=== PATIENT | female | born 1995 | race Caucasian/White ===

== ENCOUNTER 2023-03-26 10:24 | Emergency (ER) | payer OTHER, MEDICARE, SELFPAY ==
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
--- NOTE | ~2023-03-26 | XR_ITS ---
EXAMINATION: XR femur RT min 2V INDICATION: Right femur pain TECHNIQUE: Two views of the right femur are obtained on four radiographs. COMPARISON: None available FINDINGS: No fracture, dislocation, or subluxation. The bones, soft tissues, and joint spaces are nor mal. IMPRESSION: 1. No acute osseous abnormality. Reviewed, dictated and finalized at location A.
--- NOTE | ~2023-03-26 | XR_ITS ---
EXAMINATION: XR hip RT min 3V w AP pelvis INDICATION: Right hip pain TECHNIQUE: AP view the pelvis and three views of the right hip are obtained. COMPARISON: None available FINDINGS: Bone alignment is normal. There is no fracture. The soft tissues are unremarkable. Phleboli ths are noted in the pelvis. IMPRESSION: 1. No acute osseous abnormality. Reviewed, dictated and finalized at location A.
[2023-03-26 10:55] VITALS: BP 121/58; PULSE 94; RESP 16; TEMP 37.1; O2SAT 99
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
[2023-03-26] MEDS: HYDROcodone/acetaminophen (*CRX) 5-325 MG TABLET 1 TAB PO (12:29)
[2023-03-26 13:01] LABS: Basophils Percent Auto 0.3 % (0.2-1.2); Eosinophils Absolute Auto 0.1 K/mm3 (0-0.3); Eosinophils Percent Auto 0.9 % (0-4.4); Hematocrit 44.3 % (37.0-47.0); Hemoglobin 14.7 g/dL (12.0-15.0); Immature Granulocyte Absolute 0.04 K/mm3 (0.00-0.031); Immature Granulocyte Percent A 0.3 % (0-0.5); Lymphocytes Absolute Auto 2.44 K/mm3 (0.9-3.2); Lymphocytes Percent Auto 21.2 % (18.3-44.2); Mean Corpuscular HGB Conc 33.2 g/dl (32-36); Mean Corpuscular Hemoglobin 29.9 pg (26-34); Mean Corpuscular Volume 90.2 fl (80-100); Mean Platelet Volume 10.6 fl (7.4-10.4); Monocytes Absolute Auto 0.6 K/mm3 (0.1-0.6); Monocytes Percent Auto 5.2 % (2.6-8.5); Neutrophils Absolute Auto 8.3 K/mm3 (1.3-6.7); Neutrophils Percent Auto 72.1 % (45.5-73.1); Platelet Count Result 308 k/mm3 (150-375); Red Blood Count 4.91 M/mm3 (4.2-5.4); Red Cell Distribution Width 12.4 % (11.5-14.5); White Blood Count 11.5 K/mm3 (4.5-10.0)
[2023-03-26] MEDS: TETANUS,DIPHTHERIA,AC PERTUSSIS ADULT (0.5 ML) BOOSTRIX IM (13:08)
[2023-03-26 13:18] LABS: Alanine Aminotransferase 19 U/L (6-35); Albumin Level 4.5 g/dL (3.5-5.1); Alkaline Phosphatase 73 U/L (38-126); Anion Gap 7 mmol/L (8-16); Aspartate Amino Transferase 24 U/L (14-36); Bilirubin,Total 0.7 mg/dL (0.2-1.3); Blood Urea Nitrogen 16 mg/dL (7-17); Calcium 9.2 mg/dL (8.4-10.2); Carbon Dioxide 24 mmol/L (22-30); Chloride 104 mmol/L (98-107); Creatine Kinase 65 U/L (30-135); Estimated CRCL calculation 180 ml/min; Estimated Glomerular Filt Rate > 60; Glucose 190 mg/dL (65-110); Sodium 135 mmol/L (137-145)
--- NOTE | 2023-03-26 13:38 | PC.NURSE ---
pt taken to CT at this time
[2023-03-26 13:49] LABS: Appearance Urine Cloudy (Clear); Bilirubin Urine 1+ (Negative); Blood Urine Trace-intact (Negative); Color Urine Yellow (Yellow); Glucose Urine UA Trace mg/dL (Negative); Ketones Urine 1+ mg/dL (Negative); Leukocyte Esterase Ur Negative LEU/UL (Negative); Nitrate Urine Negative (Negative); Protein Urine 2+ mg/dL (Negative); Urobilinogen Urine 0.2 mg/dL (<2.0); pH Urine 6.5 (5.0-9.0)
--- NOTE | 2023-03-26 13:58 | PC.NURSE ---
pt returned to room 21 at this time
[2023-03-26 14:08] LABS: Bacteria Urine 4+ /hpf; Mucus Urine Present /lpf; Need Manual Microscopic Reviewed; Non Pathogenic Casts 0-2; Squamous Epithelial Cell Urine Many /hpf (Few); WBC Urine 51-100 /hpf
[2023-03-26 14:14] LABS: Add Urine Microscopic? YES
[2023-03-26 15:03] VITALS: BP 128/66; PULSE 88; RESP 20; O2SAT 99
== END 2023-03-26 15:05 | disposition home or self-care (01) ==
PROVIDERS: Emergency Provider Student in an Organized Health Care Education/Training Program
DX: S70.01XA Contusion of right hip, initial encounter (principal); N39.0 Urinary tract infection, site not specified; Z23 Encounter for immunization; N83.202 Unspecified ovarian cyst, left side; V47.5XXA Car driver injured in collision with fixed or stationary object in traffic accident, initial encounter
CPT/HCPCS: 36415; 73502; 73552; 74177; 80053; 81001; 81025; 82550; 85025; 87086; 87088; 90471; 90715; 99284; A9270; Q9967

== ENCOUNTER 2023-06-29 11:53 | Emergency (ER) | payer MEDICAID, SELFPAY ==
[2023-06-29 12:05] VITALS: BP 110/58; PULSE 85; RESP 16; TEMP 37.2; O2SAT 99
--- NOTE | 2023-06-29 12:42 | ED.URI ---
HPI - URI/Sore Throat General Chief Complaint: Upper Respiratory Infection Stated Complaint: cough, short of breath Time Seen by Provider: 06/29/23 12:42 Source: patient Mode of arrival: ambulatory Limitations: no limitations History of Present Illness HPI Narrative: 28-year-old female presents with complaint of sore throat, nasal congestion, cough, fatigue, body aches, headache, low-grade fever for the past 5 days. Fever now resolved. Taking [id number] DayQuil NyQuil to treat symptoms. Denies nausea vomiting diarrhea. Patient reports history of lupus and wants to make sure she does not need antibiotic. All systems reviewed and negative except as noted above. Related Data Home Medications Medication Instructions Recorded Confirmed No Home Medications 06/29/23 06/29/23 Allergies Allergy/AdvReac Type Severity Reaction Status Date / Time codeine Allergy Nausea and Verified 06/29/23 12:12 Vomiting Review of Systems Review of Systems: CONSTITUTIONAL: Reports fever, chills, or sweats. EYES: Denies visual changes, redness, or discharge. ENT: reports rhinorrhea, congestion, sore throat. Denies otalgia. CARDIOVASCULAR: Denies chest pain, palpitations, or edema. RESPIRATORY: report cough. Denies dyspnea. GASTROINTESTINAL: Denies abdominal pain, nausea, vomiting, or diarrhea. GENITOURINARY: Denies dysuria or hematuria. SKIN: Denies rash or itching. MUSCULOSKELETAL: Denies back pain, joint pain, or myalgia. NEUROLOGIC: Denies headache, numbness, or weakness. PSYCHIATRIC: Denies anxiety or depression. All other systems reviewed are negative, except as documented in HPI. PMFSH Comments At time of signature, agree with nursing past medical, surgical, social and family history. There is no relevant family history pertinent to the presenting complaint. Exam Narrative: GENERAL: This is a well-nourished, well-developed patient, in no apparent distress. HEAD: normocephalic, atraumatic. EYES: PERRL. Sclera clear/white. Vision is grossly intact. EARS: External ears normal, auditory canals clear and without drainage, TMs normal without perforation. Hearing grossly intact. NOSE: External nose normal with nasal drainage, mild congestion, erythema to bilateral nares THROAT: Mucous membranes moist, posterior pharynx clear. NECK: Neck supple, non-tender without lymphadenopathy, masses or thyromegaly. CARDIOVASCULAR: Regular rate and rhythm without murmurs, gallops, or rubs. RESPIRATORY: Clear to auscultation. Breath sounds equal bilaterally. No wheezes, rales, or rhonchi. SKIN: warm, Dry, intact with no suspicious lesions or rash, good texture and turgor. NEURO: awake, alert, and oriented to person, place and time. There were no obvious focal neurologic abnormalities. EXTREMITIES: No joint tenderness, effusion, or edema noted. Course Course Level of Care: Express Care Visit Vital Signs Vital signs: Vital Signs Temperature 37.2 C 06/29/23 12:05 Pulse Rate 85 06/29/23 12:05 Respiratory Rate 16 06/29/23 12:05 Blood Pressure 110/58 L 06/29/23 12:05 Pulse Oximetry 99 06/29/23 12:05 Oxygen Delivery Room Air 06/29/23 12:05 Temperature 37.2 C 06/29/23 12:05 Pulse Rate 85 06/29/23 12:05 Respiratory Rate 16 06/29/23 12:05 Blood Pressure 110/58 L 06/29/23 12:05 Pulse Oximetry 99 06/29/23 12:05 Oxygen Delivery Room Air 06/29/23 12:05 reviewed MDM - URI/Sore Throat MDM Narrative Medical decision making narrative: Patient is aware of diagnosis, understands and agrees to treatment plan. Anticipatory guidance given. Patient agrees to follow-up as directed and is aware of reasons to seek care at the emergency department. Portions of this record may have been created with voice recognition software Differential Diagnosis Differential diagnosis: Likely upper respiratory infection and viral infection Discharge Plan Discharge Clinical Impression: Viral
== END 2023-06-29 12:59 | disposition home or self-care (01) ==
PROVIDERS: Emergency Provider Nurse Practitioner Family
DX: J06.9 Acute upper respiratory infection, unspecified (principal)
CPT/HCPCS: 99211; G0463

== ENCOUNTER 2023-09-30 12:17 | Outpatient (CLI) | payer OTHER, SELFPAY ==
--- NOTE | ~2023-09-30 | MM_ITS ---
EXAMINATION: MM diagnostic neno BI w greg HISTORY: Bloody right nipple discharge, yellow left nipple discharge TECHNIQUE: ML, MLO and CC 3-D tomosynthesis images of both breasts were performed and synthetic 2-D i mages were generated. CAD analysis was submitted and interpreted. COMPARISON: None BREAST PARENCHYMAL COMPOSITION: The breasts are almost entirely fatty. FINDINGS: No suspicious mass or architectural distortion, malignant calcification, skin thickening or retraction is detected. IMPRESSION: 1. No mammographic evidence of malignancy 2. Given the patient's family history of early onset breast cancer, consider genetic counseling, natalia y onset annual mammographic screening and/or MR breast imaging as appropriate based upon the patient' s risk factors BI-RADS Category 1: Negative Reviewed, dictated and finalized at location A. IMPRESSION: 1. No mammographic evidence of malignancy 2. Given the patient's family history of early onset breast cancer, consider ge netic counseling, early onset annual mammographic screening and/or MR breast im aging as appropriate based upon the patient's risk factors BI-RADS Category 1: Negative
== END 2023-09-30 12:18 | disposition home or self-care (01) ==
PROVIDERS: PCP Nurse Practitioner Family; Visit Provider Advanced Practice Midwife
DX: N64.52 Nipple discharge (principal)
CPT/HCPCS: 77062; 77066; G0279

== ENCOUNTER 2023-11-21 13:52 | Emergency (ER) | payer OTHER, SELFPAY ==
[2023-11-21 14:16] LABS: Glucose Point of Care 307 mg/dl (65-105)
[2023-11-21 14:23] VITALS: BP 141/78; PULSE 88; RESP 16; TEMP 37.2; O2SAT 99
--- NOTE | 2023-11-21 14:43 | ED.GENADULT ---
HPI - General Adult General Chief complaint: Skin/Abscess/Foreign Body Stated complaint: HX: HS abcess under r breast, r groin area Source: patient Mode of arrival: ambulatory Limitations: no limitations History of Present Illness HPI narrative: patient presents for evaluation of an abscess to the right breast for the last 3 weeks. She indicates she has a history of recurrent abscess formations and has been told in the past that she has hidradenitis. She states that the lesion to the right breast is actively draining. She also has another lesion to right proximal right thigh that has been present for months. That lesion is not draining. She denies any fever, chills, vomiting. She has some mild nausea. She is diabetic but ran out of medication when she moved her 8 months ago. She states insulin was ineffective but metformin helped control her blood sugars better. She does use an electronic cigarette. Related Data Allergies Allergy/AdvReac Type Severity Reaction Status Date / Time codeine Allergy Nausea and Verified 10/12/23 13:06 Vomiting naproxen AdvReac Mild Nausea Verified 10/12/23 13:07 Review of Systems Review of Systems: CONSTITUTIONAL: Denies fever, chills, or sweats. EYES: Denies visual changes, redness, or discharge. ENT: Denies rhinorrhea, congestion, sore throat, or otalgia. CARDIOVASCULAR: Denies chest pain, palpitations, or edema. RESPIRATORY: Denies cough or dyspnea. GASTROINTESTINAL: Denies abdominal pain, nausea, vomiting, or diarrhea. GENITOURINARY: Denies dysuria or hematuria. SKIN: Reports abscess formation to right breast. Reports additional skin lesion to proximal right thigh MUSCULOSKELETAL: Denies back pain, joint pain, or myalgia. NEUROLOGIC: Denies headache, numbness, dizziness, or weakness. PSYCHIATRIC: Denies anxiety or depression. [facility] Past Medical History Medical History Diabetes Hidradenitis suppurativa Surgical History Surgical History No pertinent past surgical history Family History Family History Father Cancer Hypertension Depression Mother Alcoholism Asthma Cancer Diabetes mellitus Hypertension Depression Cerebrovascular accident Sibling Asthma Diabetes mellitus Depression Grandparent Diabetes mellitus Hypertension Depression Heart disease Asthma Cancer Cerebrovascular accident Social History Social History Smoking status: Current every day smoker Tobacco type: e-cigarettes/vaping Alcohol intake: never Substance use: current Substance use type: marijuana Do You Feel Safe in your Home?: Yes Lack of Transportation: No Lack of Food: Never True Current Housing: I Have Housing Concerned About Future Housing: No Difficulty Paying Gas/Electric Bills: No Difficulty Paying for Meds: No Currently Unemployed: No Education: High School Diploma/GED Difficulty w/ Childcare or Family Care: No Exam Narrative: GENERAL: Well-appearing, well-nourished, and in no acute distress. HEAD: Normocephalic, atraumatic. EYES: PERRLA and EOMI. ENT: Nares clear, no rhinorrhea or epistaxis. Mucous membranes moist. Oropharynx without tonsillar hypertrophy exudate or other lesions. Bilateral TMs pearly [place] nonbulging NECK: Supple. No adenopathy or masses. No carotid bruits or JVD CHEST: Clear to auscultation. No respiratory distress. No wheezes rales or rhonchi HEART: Regular rate and rhythm. No murmur heard. Normal peripheral pulses. ABDOMEN: Soft, nontender, nondistended, normal active bowel sounds. EXTREMITIES: Normal range of motion. No edema. SKIN: there is an approximately 2 cm slightly raised pustule to right breast which has erupted. There is a scant amount of dried puru
== END 2023-11-21 14:46 | disposition home or self-care (01) ==
PROVIDERS: Emergency Provider Nurse Practitioner; PCP Nurse Practitioner Family
DX: N61.1 Abscess of the breast and nipple (principal); L72.3 Sebaceous cyst; F17.290 Nicotine dependence, other tobacco product, uncomplicated; E11.9 Type 2 diabetes mellitus without complications; F12.90 Cannabis use, unspecified, uncomplicated
CPT/HCPCS: 81025; 82948; 87070; 87075; 87205; 99213; G0463

== ENCOUNTER 2024-02-11 14:33 | Outpatient (CLI) | payer OTHER, SELFPAY ==
--- NOTE | ~2024-02-11 | US_ITS ---
US breast BI limited INDICATION: Bloody nipple discharge TECHNIQUE: Dedicated bilateral complete breast ultrasound including all 4 quadrants in the subareolar locations. COMPARISON: No prior studies for comparison. BREAST DENSITY: [ Not Dense: The breasts are almost entirely fatty. ] FINDINGS: The right and left breast is/are composed of normal heterogeneous echotexture without focal solid or cystic mass. IMPRESSION: 1: Normal bilateral breast ultrasound. BI-RADS CATEGORY 1 - NEGATIVE Reviewed, dictated and finalized at location B.
== END 2024-02-11 14:34 | disposition home or self-care (01) ==
LOC: ANHIMG 14:34
PROVIDERS: PCP Nurse Practitioner Family; Visit Provider Surgery
DX: N64.52 Nipple discharge (principal); Z80.3 Family history of malignant neoplasm of breast; Z12.39 Encounter for other screening for malignant neoplasm of breast
CPT/HCPCS: 76642

== ENCOUNTER 2024-03-07 09:54 | Emergency (ER) | payer OTHER, SELFPAY ==
[2024-03-07 10:17] VITALS: BP 137/79; PULSE 103; RESP 20; TEMP 36.8; O2SAT 100
[2024-03-07 10:26] LABS: Glucose Point of Care 186 mg/dl (65-105)
[2024-03-07 11:08] VITALS: BP 133/80; PULSE 99; RESP 20; O2SAT 100
--- NOTE | 2024-03-07 11:55 | ED.GENADULT ---
HPI - General Adult General Chief complaint: Skin/Abscess/Foreign Body Stated complaint: RASH - L INNER THIGH \ Time Seen by Provider: 03/07/24 11:37 History of Present Illness HPI narrative: 28-year-old female presents to the emergency department for evaluation for left thigh. Patient is a type 1 diabetic patient reports she also has history of HS. Patient states over the course of last week she has had increased draining from the left thigh. Related Data Allergies Allergy/AdvReac Type Severity Reaction Status Date / Time codeine Allergy Nausea and Verified 10/12/23 13:06 Vomiting naproxen AdvReac Mild Nausea Verified 10/12/23 13:07 Review of Systems Review of Systems: All systems reviewed & are unremarkable except as noted in HPI and below PMFSH Past Medical History Medical History Diabetes Hidradenitis suppurativa Surgical History Surgical History No pertinent past surgical history Family History Family History Father Cancer Hypertension Depression Mother Alcoholism Asthma Cancer Diabetes mellitus Hypertension Depression Cerebrovascular accident Sibling Asthma Diabetes mellitus Depression Grandparent Diabetes mellitus Hypertension Depression Heart disease Asthma Cancer Cerebrovascular accident Social History Social History Smoking status: Current every day smoker Tobacco type: e-cigarettes/vaping Alcohol intake: never Substance use: current Substance use type: marijuana Do You Feel Safe in your Home?: Yes Lack of Transportation: No Lack of Food: Never True Current Housing: I Have Housing Concerned About Future Housing: No Difficulty Paying Gas/Electric Bills: No Difficulty Paying for Meds: No Currently Unemployed: No Education: High School Diploma/GED Difficulty w/ Childcare or Family Care: No Exam Narrative: APPEARANCE: Well appearing, no pain, no distress, well-nourished. HEAD: normocephalic, atraumatic. EYES: PERRLA/EOMI, conjunctivae clear. NOSE: Normal no drainage EARS:TMS clear with good light reflex. THROAT: Pharynx clear, no exudate. NECK: Supple. No adenopathy, no masses. RESPIRATORY: Airway patent, respirations nonlabored. Clear to auscultation bilaterally, no rales, rhonchi, wheezing. CARDIOVASCULAR: Regular rate and rhythm without murmurs rubs or gallops. ABDOMINAL: Soft, nontender, nondistended, normal bowel sounds MUSCULOSKELETAL: Moves all extremities. Strength/ROM intact, No edema, No calf tenderness. NEURO: Alert. Cranial nerves II through XII intact. Good gait. Good coordination SKIN: Draining abscess on left medial thigh Course Vital Signs Vital signs: Vital Signs Temperature 98.2 F 03/07/24 10:17 Pulse Rate 103 H 03/07/24 10:17 Respiratory Rate 20 03/07/24 10:17 Blood Pressure 137/79 03/07/24 10:17 Pulse Oximetry 100 03/07/24 10:17 Oxygen Delivery Room Air 03/07/24 10:17 Temperature 98.2 F 03/07/24 10:17 Pulse Rate 99 03/07/24 11:08 Respiratory Rate 20 03/07/24 11:08 Blood Pressure 133/80 03/07/24 11:08 Pulse Oximetry 100 03/07/24 11:08 Oxygen Delivery Room Air 03/07/24 10:17 Medical Decision Making MDM Narrative Medical decision making narrative: 28-year-old female presented to the emergency department for evaluation for a draining abscess on her left thigh. Bedside ultrasound showed no residual abscess requiring incision and drainage. Patient was started on p.o. antibiotics emergency department. Patient was discharged home on antibiotics Differential Diagnosis Differential Diagnosis: Abscess, cellulitis on diabetic ulcer Vital Signs Vital Signs: Vital Signs Temperature 98.2 F 03/07/24 10:17 Pul
[2024-03-07] MEDS: CLINDAMYCIN HCL 150 MG CAP 300 MG PO (12:04)
== END 2024-03-07 12:03 | disposition home or self-care (01) ==
PROVIDERS: Emergency Provider Emergency Medicine; PCP Nurse Practitioner Family
DX: L02.416 Cutaneous abscess of left lower limb (principal); E10.8 Type 1 diabetes mellitus with unspecified complications; F17.290 Nicotine dependence, other tobacco product, uncomplicated; Z79.84 Long term (current) use of oral hypoglycemic drugs
CPT/HCPCS: 82948; 99283; A9270

== ENCOUNTER 2024-04-07 10:46 | Outpatient (CLI) | payer OTHER, SELFPAY ==
--- NOTE | ~2024-04-07 | MR_ITS ---
MR breast BI wo/w con 04/07/2024 12:53 CDT INDICATION: Breast nipple discharge. Family history of malignant neoplasm. TECHNIQUE: MRI of the breasts perform using standard protocol pre-and post IV contrast with the follo wing sequences: Axial T2 STIR, axial T1, axial vibrant T1 with fat suppression precontrast and multip hasic postcontrast. 20 cc MultiHance administered intravenously. COMPARISON: Diagnostic mammogram dated 09/30/2023 and ultrasound dated 02/11/2024 FINDINGS: Right breast: There are no abnormalities on the precontrast sequences. There is mild background paren chymal enhancement. No enhancing lesions following contrast administration. No areas of enhancement meeting threshold criteria on CAD analysis. No evidence of signal abnormalities in the axillary or internal mammary node distributions. LEFT BREAST: No signal abnormalities on precontrast sequences. There is mild background parenchymal enhancement. There is an irregular shaped foci of enhancement measuring 5 mm in the lower central asp ect of the left breast, middle third. There is rapid washout enhancement. No evidence of signal abnor malities in the axillary or internal mammary node distributions. IMPRESSION: 1: Right breast: Negative. No evidence of malignancy. BI-RADS category 1. Recommend annual mammo graphy follow-up. 2: Left breast: Irregular shaped mass of enhancement measuring 5 mm in the lower central aspect of the left breast, middle third. Rapid washout enhancement within the mass. Follow-up diagnostic left mammogram and Limited left breast ultrasound recommended. BI-RADS CATEGORY 0 - INCOMPLETE STUDY, NEED ADDITIONAL IMAGING EVALUATION. Reviewed, dictated and finalized at location B. IMPRESSION: 1: Right breast: Negative. No evidence of malignancy. BI-RADS category 1. Recommend annual mammography follow-up. 2: Left breast: Irregular shaped mass of enhancement measuring 5 mm in the lo wer central aspect of the left breast, middle third. Rapid washout enhancement within the mass. Follow-up diagnostic left mammogram and Limited left breast ultrasound recommen ded. BI-RADS CATEGORY 0 - INCOMPLETE STUDY, NEED ADDITIONAL IMAGING EVALUATION.
== END 2024-04-07 10:47 | disposition home or self-care (01) ==
PROVIDERS: PCP Surgery; Visit Provider Surgery
DX: N64.52 Nipple discharge (principal); Z80.3 Family history of malignant neoplasm of breast; R92.2 Inconclusive mammogram
CPT/HCPCS: 77049; A9577; C8908

== ENCOUNTER 2024-05-22 15:57 | Emergency (ER) | payer OTHER, SELFPAY ==
--- NOTE | 2024-05-22 16:09 | ECG_ITS ---
Test Date: 2024-05-22 16:08:51 Measurements Intervals [place] Rate: 103 P: 33 DC: 124 QRS: 5 QRSD: 88 T: 36 QT: 325 QTc: 427 Interpretive Statements SINUS TACHYCARDIA OTHERWISE NORMAL ECG Electronically Signed On 05-23-2024 08:55:57 [employer] by Glynn Gurrola M.D.
[2024-05-22 16:30] LABS: Basophils Percent Auto 0.3 % (0.2-1.2); Eosinophils Absolute Auto 0.2 K/mm3 (0-0.3); Eosinophils Percent Auto 2.4 % (0-4.4); Hematocrit 40.2 % (37.0-47.0); Hemoglobin 14.1 g/dL (12.0-15.0); Immature Granulocyte Absolute 0.01 K/mm3 (0.00-0.031); Immature Granulocyte Percent A 0.1 % (0-0.5); Lymphocytes Absolute Auto 2.75 K/mm3 (0.9-3.2); Lymphocytes Percent Auto 36.2 % (18.3-44.2); Mean Corpuscular HGB Conc 35.1 g/dl (32-36); Mean Corpuscular Hemoglobin 29.7 pg (26-34); Mean Corpuscular Volume 84.6 fl (80-100); Mean Platelet Volume 10.7 fl (7.4-10.4); Monocytes Absolute Auto 0.4 K/mm3 (0.1-0.6); Monocytes Percent Auto 5.4 % (2.6-8.5); Neutrophils Absolute Auto 4.2 K/mm3 (1.3-6.7); Neutrophils Percent Auto 55.6 % (45.5-73.1); Platelet Count Result 299 k/mm3 (150-375); Red Blood Count 4.75 M/mm3 (4.2-5.4); Red Cell Distribution Width 12.7 % (11.5-14.5); White Blood Count 7.6 K/mm3 (4.5-10.0)
[2024-05-22 16:40] LABS: Alanine Aminotransferase 17 U/L (6-35); Albumin Level 4.3 g/dL (3.5-5.1); Alkaline Phosphatase 91 U/L (38-126); Anion Gap 6 mmol/L (4-12); Aspartate Amino Transferase 19 U/L (14-36); Bilirubin,Total 0.5 mg/dL (0.2-1.3); Blood Urea Nitrogen 12 mg/dL (7-17); Calcium 9.3 mg/dL (8.4-10.2); Carbon Dioxide 27 mmol/L (22-30); Chloride 100 mmol/L (98-107); Estimated CRCL calculation 186 ml/min; Estimated Glomerular Filt Rate > 60; Glucose 385 mg/dL (65-110); Potassium 3.8 mmol/L (3.4-5.0); Sodium 133 mmol/L (137-145)
[2024-05-22 16:41] VITALS: BP 127/85; PULSE 111; RESP 18; TEMP 36.4; O2SAT 96
[2024-05-22 16:51] LABS: Troponin I < 0.012 ng/mL (0.000-0.034)
--- NOTE | 2024-05-22 19:46 | PC.NURSE ---
Patient called out for twice at 1914 and 1944. No answer
== END 2024-05-22 20:24 | disposition left against medical advice (07) ==
PROVIDERS: Emergency Provider Emergency Medicine; PCP Surgery
DX: R20.0 Anesthesia of skin (principal)
CPT/HCPCS: 36415; 80053; 84484; 85025; 93005; 99199

== ENCOUNTER 2024-05-23 12:42 | Outpatient (CLI) | payer OTHER, SELFPAY ==
--- NOTE | ~2024-05-23 | MMUS_ITS ---
EXAMINATION: MM diagnostic neno LT w greg, US breast LT limited HISTORY: Follow-up left breast mass seen on prior MRI examination.. History of nipple discharge. TECHNIQUE: Additional 3-D tomosynthesis images of the left breast were performed and synthetic 2-D im ages were generated. CAD analysis was submitted and interpreted. High resolution Limited left breast ultrasound was performed. COMPARISON: Comparison to multiple prior studies sequentially, with oldest reviewed study dated 09/29. BREAST PARENCHYMAL COMPOSITION: Not dense: There are scattered areas of fibroglandular density. FINDINGS: MAMMOGRAPHIC FINDINGS: There are no suspicious masses, calcifications or architectural distortion in the left breast to sugg est malignancy. ULTRASOUND: Limited left breast ultrasound: At 7:00, 2 cm from the nipple there is an oval hypoechoic parallel or iented mass with no significant posterior features or internal vascularity measuring 5 x 4 x 3 mm, li heather benign. This may correspond to the MRI finding. IMPRESSION: 1. Probable benign left breast mass at 7:00, 2 cm from the nipple. 2. Recommend 6 month follow-up Limited left breast ultrasound BI-RADS category 3, probably benign findings. Reviewed, dictated and finalized at location B. ER/WAITRESS TAKE OUT IMPRESSION: 1. Probable benign left breast mass at 7:00, 2 cm from the nipple. 2. Recommend 6 month follow-up Limited left breast ultrasound BI-RADS category 3, probably benign findings.
== END 2024-05-23 12:43 | disposition home or self-care (01) ==
LOC: ANHIMG 12:42
PROVIDERS: PCP Surgery; Visit Provider Surgery
DX: Z12.31 Encounter for screening mammogram for malignant neoplasm of breast (principal); N64.52 Nipple discharge; R92.8 Other abnormal and inconclusive findings on diagnostic imaging of breast
CPT/HCPCS: 76642; 77061; 77065; G0279